=== PATIENT | female | born 1990 | race Caucasian/White ===

== ENCOUNTER 2022-12-29 15:29 | Day surgery (SDC) | payer OTHER ==
[2022-12-29 16:19] VITALS: BMI 35.4
[2022-12-29] MEDS ORDERED: hydrALAZINE 20 MG/ML VIAL SLOW IVP PRN ×2 (17:15→18:28)
== END 2022-12-29 18:17 | disposition home or self-care (01) ==
LOC: CSHLD/OP 15:29
PROVIDERS: ATTEND Obstetrics & Gynecology
DX: O36.8130 Decreased fetal movements, third trimester, not applicable or unspecified (principal); Z3A.38 38 weeks gestation of pregnancy
CPT/HCPCS: 59025; 99282